=== PATIENT | female | born 2000 | race Caucasian/White ===

== ENCOUNTER 2018-02-10 14:09 | Inpatient (IN) | payer OTHER ==
[2018-02-10 15:35] LABS: ABS Basophils 0.1 10^3/ul (0-0.2); ABS Eosinophils 0 10^3/ul (0-0.6); ABS Lymphocytes 0.9 10^3/ul (1.0-4.8); ABS Monocytes 0.5 10^3/ul (0-0.8); ABS Neutrophils 5.6 10^3/ul (1.5-7.7); ABS Nucleated RBC 0 10^3/ul; Eosinophil % 0.2 % (0-6); Hematocrit 38 % (35-47); Hemoglobin 13.3 g/dl (12.0-16.0); Lymphocyte % 13.3 % (25-47); Mean Corpuscular HGB Conc 35 g/dl (31-36); Mean Corpuscular Hemoglobin 30 pg (27-31); Mean Corpuscular Volume 86 fL (80-97); Mean Platelet Volume 8.7 um3 (7.4-10.4); Nucleated Red Blood Cells % 0.1; Platelet Count 198 10^3/ul (150-450); Red Blood Count 4.46 10^6/ul (4.0-5.4); Red Cell Distribution Width 13 % (10.5-15); White Blood Count 7.1 10^3/ul (3.5-10.8)
[2018-02-10 16:12] LABS: EGFR Non-African American 116.2 (>60)
[2018-02-10 21:24] LABS: Urine Appearance Clear; Urine Blood 2+ (Negative); Urine Color Yellow; Urine Ketones Negative (Negative); Urine Protein Negative (Negative); Urine Specific Gravity 1.006 (1.010-1.030); Urine Urobilinogen Negative (Negative)
--- NOTE | 2018-02-10 23:54 | ED ---
Vito Wood Jennifer, scribed for Anam Estrella MD on 02/10/18 at 1514 . Psychiatric Complaint - HPI Summary HPI Summary: The patient is a 18 year old female who comes to the ED from [facility] for depression, anxiety, and SI all year that worsened in the past few days. The patient states that she had a final two days ago that worsened her anxiety, but she skipped it and drank alcohol instead. The patient reports [facility] and expressed SI. She denies suicidal plan and drug use. - History Of Current Complaint Chief Complaint: EDMentalHealth Hx Obtained From: Patient Onset/Duration: Gradual Onset, Still Present, Worse Since - two days ago, Other - Present for at least one year Timing: Constant Severity Initially: Moderate Severity Currently: Moderate Character: Depressed, Anxious Aggravating Factor(s): Recent Stress - Exams Alleviating Factor(s): Nothing Has Suicidal: Reports: Thoughts. Denies: With A Plan Has Homicidal: Denies: Thoughts, With A Plan - Allergies/Home Medications Allergies/Adverse Reactions: Allergies Allergy/AdvReac Type Severity Reaction Status Date / Time No Known Allergies Allergy Verified 02/10/18 17:45 Home Medications: Home Medications FLUoxetine CAP* [PROzac CAP*] 80 mg PO DAILY 02/10/18 [History Confirmed ] PMH/Surg Hx/FS Hx/Imm Hx Endocrine/Hematology History: Denies: Hx Diabetes Cardiovascular History: Denies: Hx Hypertension Psychiatric History: Reports: Hx Eating Disorder - Bulimia, Hx Depression Infectious Disease History: No Infectious Disease History: Denies: Traveled Outside the [place] in Last 30 Days - Family History Known Family History: Negative: Renal Disease - Social History Occupation: Student Alcohol Use: Occasionally Substance Use Type: Reports: None Smoking Status (MU): Never Smoked Tobacco Review of Systems Negative: Fever Positive: Anxious, Depressed, Other - SI All Other Systems Reviewed And Are Negative: Yes Physical Exam - Summary Physical Exam Summary: Appearance: Well-appearing, Well-nourished Skin: Warm Eyes: Normal ENT: Normal Neck: Supple, nontender Respiratory: Clear to auscultation Cardiovascular: Normal S1, S2. No murmurs. Normal distal pulses in tibial and radial bilaterally. Abdomen: Soft, nontender Musculoskeletal: Normal, Strength/ROM Intact Neurological: Normal, A&Ox3 Psychiatric: Appears mildly anxious, positive SI, no HI General: No acute distress Triage Information Reviewed: Yes Vital Signs On Initial Exam: Initial Vitals Temp Pulse Resp BP Pulse Ox 99.1 F 96 18 137/84 99 02/10/18 14:14 02/10/18 14:14 02/10/18 14:14 02/10/18 14:14 02/10/18 14:14 Vital Signs Reviewed: Yes Diagnostics - Vital Signs Vital Signs Temp Pulse Resp BP Pulse Ox 02/10/18 14:14 99.1 F 96 18 137/84 99 - Laboratory Lab Results: Lab Results 02/10/18 02/10/18 02/10/18 Range/Units 15:21 15:21 20:55 WBC 7.1 (3.5-10.8) 10^3/ul RBC 4.46 (4.0-5.4) 10^6/ul Hgb 13.3 (12.0-16.0) g/dl Hct 38 (35-47) % MCV 86 (80-97) fL MCH 30 (27-31) pg MCHC 35 (31-36) g/dl RDW 13 (10.5-15) % Plt Count 198 (150-450) 10^3/ul MPV 8.7 (7.4-10.4) um3 Neut % (Auto) 78.8 (38-83) % Lymph % (Auto) 13.3 L (25-47) % [place] % (Auto) 6.9 (0-7) % Eos % (Auto) 0.2 (0-6) % Baso % (Auto) 0.8 (0-2) % Absolute Neuts (auto) 5.6 (1.5-7.7) 10^3/ul Absolute Lymphs (auto) 0.9 L (1.0-4.8) 10^3/ul Absolute Monos (auto) 0.5 (0-0.8) 10^3/ul Absolute Eos (auto) 0 (0-0.6) 10^3/ul Absolute Basos (auto) 0.1 (0-0.2) 10^3/ul Absolute Nucleated RBC 0 10^3/ul Nucleated RBC % 0.1 Sodium 137 L (139-145) mmol/L Potassium 3.9 (3.5-5.0) mmol/L Chloride 105 (101-111) mmol/L Carbon Dioxide 22 (22-32) mmol/L Anion Gap 10 (2-11) mmol/L BUN 5 L (6-24) mg/dL Creatinine 0.65 (0.51-0.95) mg/dL Est GFR ( Amer) 149.4 (>60) Est GFR (Non-Af Amer) 116.2 (>60) BUN/Creatinine Ratio 7.7 L (8-20) Glucose 96 (70-100) mg/dL Calcium 9.1 (8.6-10.3) mg/dL Total Bilirubin 0.80 (0.2-1.0) mg/dL AST 15 (13-39) U/L ALT 8 (7-52) U/L Alkaline Phosphatase 43 (34-104) U/L Total Protein 6.9 (6.4-8.9) g/dL Albumin 4.3 (3.2-5.2) g/dL Globulin 2.6 (2-4) g/dL Albumin/Globulin Ratio 1.7 (1-3) TSH 1.18 (0.34-5.60) mcIU/mL Urine Color Yellow Urine Appearance Clear Urine pH 7.0 (5-9) Ur Specific [place] 1.006 L (1.010-1.030) Urine Protein Negative (Negative) Urine Ketones Negative (Negative) Urine Blood 2+ A (Negative) Urine Nitrate Negative (Negative) Urine Bilirubin Negative (Negative) Urine Urobilinogen Negative (Negative) Ur Leukocyte Esterase Negative (Negative) Urine WBC (Auto) Trace(0-5/hpf) (Absent) Urine RBC (Auto) Absent (Absent) Ur Squamous Epith Cells Present A (Absent) Urine Bacteria Absent (Absent) Urine Glucose Negative (Negative) Salicylates < 2.50 (<30) mg/dL Urine Opiates Screen (None Detect) Acetaminophen < 15 mcg/mL Ur Barbiturates Screen (None Detect) Ur Phencyclidine Scrn (None Detect) Ur Amphetamines Screen (None Detect) U Benzodiazepines Scrn (None Detect) Urine Cocaine Screen (None Detect) U Cannabinoids Screen (None Detect) Serum Alcohol < 10 (<10) mg/dL 02/10/18 Range/Units 20:55 WBC (3.5-10.8) 10^3/ul RBC (4.0-5.4) 10^6/ul Hgb (12.0-16.0) g/dl Hct (35-47) % MCV (80-97) fL MCH (27-31) pg MCHC (31-36) g/dl RDW (10.5-15) % Plt Count (150-450) 10^3/ul MPV (7.4-10.4) um3 Neut % (Auto) (38-83) % Lymph % (Auto) (25-47) % [place] % (Auto) (0-7) % Eos % (Auto) (0-6) % Baso % (Auto) (0-2) % Absolute Neuts (auto) (1.5-7.7) 10^3/ul Absolute Lymphs (auto) (1.0-4.8) 10^3/ul Absolute Monos (auto) (0-0.8) 10^3/ul Absolute Eos (auto) (0-0.6) 10^3/ul Absolute Basos (auto) (0-0.2) 10^3/ul Absolute Nucleated RBC 10^3/ul Nucleated RBC % Sodium (139-145) mmol/L Potassium (3.5-5.0) mmol/L Chloride (101-111) mmol/L Carbon Dioxide (22-32) mmol/L Anion Gap (2-11) mmol/L BUN (6-24) mg/dL Creatinine (0.51-0.95) mg/dL Est GFR ( Amer) (>60) Est GFR (Non-Af Amer) (>60) BUN/Creatinine Ratio (8-20) Glucose (70-100) mg/dL Calcium (8.6-10.3) mg/dL Total Bilirubin (0.2-1.0) mg/dL AST (13-39) U/L ALT (7-52) U/L Alkaline Phosphatase (34-104) U/L Total Protein (6.4-8.9) g/dL Albumin (3.2-5.2) g/dL Globulin (2-4) g/dL Albumin/Globulin Ratio (1-3) TSH (0.34-5.60) mcIU/mL Urine Color Urine Appearance Urine pH (5-9) Ur Specific [place] (1.010-1.030) Urine Protein (Negative) Urine Ketones (Negative) Urine Blood (Negative) Urine Nitrate (Negative) Urine Bilirubin (Negative) Urine Urobilinogen (Negative) Ur Leukocyte Esterase (Negative) Urine WBC (Auto) (Absent) Urine RBC (Auto) (Absent) Ur Squamous Epith Cells (Absent) Urine Bacteria (Absent) Urine Glucose (Negative) Salicylates (<30) mg/dL Urine Opiates Screen None detected (None Detect) Acetaminophen mcg/mL Ur Barbiturates Screen None detected (None Detect) Ur Phencyclidine Scrn None detected (None Detect) Ur Amphetamines Screen None detected (None Detect) U Benzodiazepines Scrn None detected (None Detect) Urine Cocaine Screen None detected (None Detect) U Cannabinoids Screen None detected (None Detect) Serum Alcohol (<10) mg/dL Result Diagrams: 02/10/18 15:21 02/10/18 15:21 Lab Statement: Any lab studies that have been ordered have been reviewed, and results considered in the medical decision making process. - EKG 1738 Cardiac Rate: NL EKG Rhythm: Sinus Rhythm - 77 BPM EKG Interpretation: Atrial premature complexes , No acute ischemic ST changes Course/Dx - Course Assessment/Plan: Mental health evaluation appreciated, patient has clear suicidal ideations and thoughts, admitted to behavioral health unit for further treatment - Differential Dx/Clinical Impression Provider Diagnosis: Suicidal ideation Discharge - Sign-Out/Discharge Documenting (check all that apply): Discharge/Admit/Transfer - Discharge Plan Condition: Stable [place] [place] No Primary Care Phys,NOPCP [Medical Doctor] - - Billing Disposition and Condition Condition: STABLE [place] [place] The documentation as recorded by the Vito burns Jennifer accurately reflects the service I personally performed and the decisions made by me, Anam Estrella MD.
[2018-02-11] MEDS ORDERED: Al Hydrox/Mg Hydrox/Simet LIQ* 30 ML UDC PO PRN (05:36)
[2018-02-11] MEDS ORDERED: Acetaminophen TAB* 325 MG PO PRN (05:36)
[2018-02-11] MEDS: Vitamin THERAPEUTIC TAB PO SCH (11:08)
[2018-02-11] MEDS ORDERED: FLUoxetine CAP* 20 MG PO SCH (13:00)
[2018-02-11] MEDS ORDERED: LORazepam TAB(*) 0.5 MG PO ONE (14:00)
--- NOTE | 2018-02-12 02:46 | HP ---
HISTORY AND PHYSICAL: DATE OF ADMISSION: 02/10/18 SUPERVISING PSYCHIATRIST: Jerman Patterson MD * (DICTATED BY CUBA ZULUAGA NP) PRIMARY CARE PROVIDER: [facility]. JUSTIFICATION FOR ADMISSION: The patient presented to the emergency department via 9.45. She had been at her appointment at [facility] and reported suicidal ideation and an increase in eating disorder behaviors. The patient merits hospitalization for immediate safety and stabilization. CHIEF COMPLAINT: "I get overwhelmed." HISTORY OF PRESENT ILLNESS: Riddhi is a 18-year-old white female who is a sophomore at [employer] and lives in a double dormer. She is originally from [place] and is nearing her second year at [employer]. She endorses significant depression since 10th grade. She endorses depressed mood, mild anxious distress, anhedonia, hopelessness, helplessness. She endorses suicidal ideation and passive wish. The patient does not exhibit forward thinking. She is in the midst of a finals and has avoided going to them. She has been attending therapy at [facility] and sees a psychiatrist, Dr. Sharif. The patient was started fluoxetine around approximately 2 months ago. This has been titrated up to 80 mg and the patient has denied any sort of effect. She reports suicidal ideation. She denies previous attempts of suicide. She reports history of cutting since 10th grade and does this when she is feeling overwhelmed and having intense emotional tension. She states her last incident of cutting was last week and points to her hip and thigh area. The patient reports stressors of academics and even little expectations such as needing to send an e-mail. She denies panic attacks. She denies emili or hypomania. She denies psychotic symptoms. The patient reports since June 2017, she has been restricting and binging and purging. She reports that purging also releases emotional tension for her. She states that she purges up to 5 to 6 times a year. She reports she was "a little obsessive" about calorie counting when she was in 9th grade. At that time she was 140 pounds and states that this was motivated by health and somewhat body image. Collateral information from her therapist, Maya Decker, indicated that she has had increased impulsive behavior including cutting and alcohol consumption. The patient identifies that she drinks 2 to 4 times per month and endorses binge drinking during those times. She denies marijuana, cigarettes, or other substance abuse history. PAST PSYCHIATRIC HISTORY: The patient denies prior inpatient hospitalizations. She sees Maya Decker and Dr. Roxanne Sharif at [facility]. She has also been seeing a air support operations operator at the recommendation of [facility] providers. The patient denies previous psychotropic medication trials. She denies a history of trauma or abuse. PAST MEDICAL HISTORY: Childhood asthma, febrile seizures as a child. She denies history. She denies surgical history. She denies history of head injury. She reports a history of low vitamin D for which she takes supplements. CURRENT MEDICATIONS: 1. As stated below, Nexplanon was implanted in September 2016. 2. Fluoxetine 80 mg. ALLERGIES: No known drug allergies. Height 5 feet 4, weight 117 pounds. The patient reports this was her weight 1 week ago last when she met with the air support operations operator. LMP approximately 1- 1/2 weeks ago. She states this has been irregular since September 2016 and she has a Nexplanon implant in. She denies recent sexual activity or need for STI testing. FAMILY PSYCHIATRIC HISTORY: The patient has a maternal aunt with a history of bipolar disorder, mother with depression, and a great aunt completed suicide when the patient's mother was young. SOCIAL HISTORY: The patient was born in [place]. Family moved to [place], [place] when she was approximately 1-year-old. She attended a private high school in [place] due to family wishes. She states she was active in high school in extracurricular activities including quiz bowl and robotics. 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 She identifies as heterosexual and is not currently dating. Denies legal or history. Substance use history as stated above. REVIEW OF SYSTEMS: Constitutional: Negative. No fever, chills, or fatigue. ENT: Negative. Cardiovascular: The patient reports chest pain mid sternal. This did not respond to lorazepam, did respond to Maalox. Respiratory: Negative. Denies shortness of breath or cough. Genitourinary: Negative. Musculoskeletal: Negative. Neurological: Negative. PHYSICAL EXAMINATION GENERAL: The patient is thin framed, otherwise in no apparent distress. VITAL SIGNS: T 98.7, P 92, respirations 16, O2 saturation 100%, BP 105/69. HEENT: Head and Face: Normal head and face inspection. Eyes: Positive EOMI. PERRL. Conjunctivae clear. NECK: Supple. Full ROM. Trachea midline. RESPIRATORY: Lung sounds clear to auscultation. Breath sounds present. CARDIOVASCULAR: Heart RRR. Pulses are symmetrical in both upper and lower extremities. MUSCULOSKELETAL: Normal strength. ROM intact. NEUROLOGICAL: Normal sensory and motor intact. She is alert and oriented x3 with normal gait. Cerebellar function intact. SKIN: Warm and dry. Color reflects adequate perfusion. LABORATORY DATA: CBC was grossly unremarkable. CMP: Sodium 137, BUN 5, BUN to creatinine ratio 7.7. Vitamin D total 43.3 normal and TSH 1.18. Urinalysis : 2+ blood, squamous epithelial cells present. Toxicology negative for salicylates, acetaminophen and alcohol. Urine drug screen was negative. MENTAL STATUS EXAM: The patient is a thin-framed white female, who appears stated age. She is dressed in hospital scrubs. Hair is down, long and curly. She is wearing dark rimmed glasses. She sits on bed facing the physician underwriter with a cooperative attitude. She answers questions fully. She appears to be a good historian. She is alert and oriented x3. Concentration is good. Her memory is 3/3. Her mood is dysphoric. Her affect has full range. She is jovial when discussing some anecdotes. She is tearful and congruent discussing stressors. Thought process is somewhat tangential, otherwise linear. Content of thought is positive for passive wish, suicidal ideation, and preoccupation with eating disorder behaviors. She denies AV hallucinations, delusions, depersonalization, HI, or . Her insight is fair. Her judgment is poor. Fund of knowledge is excellent. DIAGNOSES: Major depressive disorder with anxious distress; unspecified eating disorder. ASSESSMENT: Riddhi is a 18-year-old white female, who presented to the emergency department after a therapy appointment at [facility] due to suicidal ideation and significant eating disorder. She has experienced epigastric pain and chest pain related to eating disorder. She reports hoping to from these symptoms and therefore, does not seek medical treatment sooner. The patient denies previous psychiatric hospitalizations. She presented severely depressed and high lethality risk. She states understanding for need of intensive psychiatric services including eating disorder protocol. PLAN: The patient is admitted to adult behavioral services unit on 9.39 status. Her code status is full. Placed on 15-minute checks for safety. This can be decreased to 30-minute observation if she is safe on all checks and staff does not denote any further concerns. We will continue with eating disorder protocol. The patient must remain in milieu for 1 hour after meals. She is encouraged to participate in supportive milieu, individual sessions with staff and psychoeducational groups. We will obtain an MMPI for diagnostic clarification. Medications: We will continue outpatient regimen at this time. Estimated length of stay is 1 week. Discharge planning will include family involvement and outpatient providers. CUBA ZULUAGA NP [id number]/CPS #: [id number] [place]
[2018-02-12] MEDS: Vitamin THERAPEUTIC TAB PO SCH (09:22)
[2018-02-12] MEDS: FLUoxetine CAP* 20 MG PO SCH (09:23)
[2018-02-12] MEDS: LORazepam TAB(*) 0.5 MG PO SCH ×2 (11:35→16:43)
[2018-02-13] MEDS: LORazepam TAB(*) 0.5 MG PO SCH ×3 (07:43→16:00)
[2018-02-13] MEDS: FLUoxetine CAP* 20 MG PO SCH (09:03)
[2018-02-13] MEDS: Vitamin THERAPEUTIC TAB PO SCH (09:03)
--- NOTE | 2018-02-13 18:11 | PN ---
Subjective - Subjective Date of Service: 02/13/18 Service Type: 98398 Hosp care 15 min low complexity Subjective: Patient was in bed in the afternoon saying that she was tired. Continues to feel depressed, tired, unmotivated and suicidal withot a plan. Denies hallucinations or delusions. Objective - Appearance Appearance: Thin Framed Dysmorphic Features: No Hygiene: Normal Grooming: Fairly Well Kept - Behavior Psychomotor Activities: Abnormal-Decreased Exhibits Abnormal Movement: No - Attitude and Relatedness Attitude and Relatedness: Appropriate Eye Contact: Fair - Speech Quality: Unpressured Latencies: Normal Quantity: Appropriate - Mood Patient's Decription of Mood: "Sad" - Affect Observed Affect: Depressed - Thought Process Patient's Thought Process: Coherent Thought Content: Yes Passive Wish, No Suicidal Planning, No Homicidal Ideation, No Paranoid Ideation - Sensorium Experiencing Hallucinations: No, Sensorium is Clear Type of Hallucinations: Visual: No, Auditory: No, Command: No - Level of Consciousness Level of Consciousness: Alert Orientation: Yes Intact, Yes Orientated to Time, Yes Orientated to Place, Yes Orientated to Person - Impulse Control Impulse Control: Intact - Insight and Judgement Insight and Judgement: Fair - Group Participation Particating in Group Activities: Yes - Medication Management Medication Management Adherence: Yes Assessment - Assessment Merits Inpatient Hospitalization: For Immediate Safety, For Stabilization, Pending Safe DC Plan Plan - Plan Treatment Plan: Name: NICHOLAS BARRIENTOS Birthdate: 2000 [id number] Continued Medication Management: Continue Outpt Medication Medications: Current Medications Acetaminophen (Tylenol Tab*) 650 mg PO Q4H PRN PRN Reason: PAIN or TEMP > 101 F Al Hydrox/Mg Hydrox/Simethicone (Maalox Plus*) 30 ml PO Q4H PRN PRN Reason: INDIGESTION Last Admin: 02/11/18 15:23 Dose: 30 ml Fluoxetine HCl (Prozac Cap*) 80 mg PO DAILY [facility] Last Admin: 02/13/18 09:03 Dose: 80 mg Lorazepam (Ativan Tab(*)) 0.5 mg PO AC [facility] Last Admin: 02/13/18 16:00 Dose: 0.5 mg Multivitamins (Theragran Tab*) 1 tab PO DAILY [facility] Last Admin: 02/13/18 09:03 Dose: 1 tab - Discharge Plan Discharge Plan: Outpatient Follow Up Outpatient Program: Counseling/Psych Services at [place]
[2018-02-14] MEDS: FLUoxetine CAP* 20 MG PO SCH (09:06)
[2018-02-14] MEDS: LORazepam TAB(*) 0.5 MG PO SCH ×3 (09:06→16:56)
[2018-02-14] MEDS: Vitamin THERAPEUTIC TAB PO SCH (09:06)
--- NOTE | 2018-02-14 16:59 | PN ---
Subjective - Subjective Service Type: [id number] Hosp care 35 min high complexity Subjective: Patient and parents present for family meeting with hand sign writer and Mayelin You LMSW. Patient tearful at times, appropriate to topic. With prompting, patient expressed ambivalence about being alive. She states that she continues to have urge to binge/purge and to self-harm. She recognizes that increased supervision is preventing her from doing so and is somewhat relieved and somewhat anxious because of this. Patient is not yet able to articulate fully underlying reason for self-harm urges. She reports some benefit from lorazepam before meals. Discussed safety planning with parents in preparation for patient to return home for the summer. Father states he removed razors, medications from her dorm and agrees to dispose of them. Discussed treatment recommendations and warning signs for patient and her parents to be aware of. Objective - Appearance Appearance: Thin Framed Dysmorphic Features: Yes Hygiene: Normal Grooming: Well Kept - Behavior Psychomotor Activities: Normal Exhibits Abnormal Movement: No - Attitude and Relatedness Attitude and Relatedness: Superficially Cooperative Eye Contact: Good - Speech Quality: Unpressured Latencies: Normal Quantity: Terse - Mood Patient's Decription of Mood: "Anxious" - Affect Observed Affect: Depressed Affect Consistent with: Dysphoria - Thought Process Patient's Thought Process: Circumstantial, Impoverished Thought Content: Yes Passive Wish, No Suicidal Planning, No Homicidal Ideation, No Paranoid Ideation - Sensorium Experiencing Hallucinations: No, Sensorium is Clear Type of Hallucinations: Visual: No, Auditory: No, Command: No - Level of Consciousness Level of Consciousness: Alert Orientation: Yes Intact, Yes Orientated to Time, Yes Orientated to Place, Yes Orientated to Person - Impulse Control Impulse Control: Tenuous - Insight and Judgement Insight and Judgement: Poor - Group Participation Particating in Group Activities: Yes - Medication Management Medication Management Adherence: Yes Assessment - Assessment Merits Inpatient Hospitalization: For Immediate Safety, For Stabilization, Consolidate Improvements, Pending Safe DC Plan Inpatient DSM-V Dx: F33.1 Clinical Impression: 18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 Patient continues to have passive wish and self-harm urges. She merits hospitalization for immediate safety and stabilization. Plan - Plan Treatment Plan: Name: NICHOLAS BARRIENTOS Birthdate: 2000 [id number] continue acute intensive psychiatric treatment. continue current medications. discharge planning to involve family and outpatient providers. Continued Medication Management: Continue Outpt Medication Medications: Current Medications Acetaminophen (Tylenol Tab*) 650 mg PO Q4H PRN PRN Reason: PAIN or TEMP > 101 F Al Hydrox/Mg Hydrox/Simethicone (Maalox Plus*) 30 ml PO Q4H PRN PRN Reason: INDIGESTION Last Admin: 02/11/18 15:23 Dose: 30 ml Fluoxetine HCl (Prozac Cap*) 80 mg PO DAILY [facility] Last Admin: 02/14/18 09:06 Dose: 80 mg Lorazepam (Ativan Tab(*)) 0.5 mg PO AC [facility] Last Admin: 02/14/18 12:00 Dose: 0.5 mg Multivitamins (Theragran Tab*) 1 tab PO DAILY [facility] Last Admin: 02/14/18 09:06 Dose: 1 tab - Discharge Plan Discharge Plan: Outpatient Follow Up Outpatient Program: Counseling/Psych Services at [place]
[2018-02-15] MEDS: LORazepam TAB(*) 0.5 MG PO SCH ×2 (07:48→11:36)
[2018-02-15] MEDS: FLUoxetine CAP* 20 MG PO SCH (08:17)
[2018-02-15] MEDS: Vitamin THERAPEUTIC TAB PO SCH (08:17)
[2018-02-15] MEDS ORDERED: LORazepam TAB(*) 0.5 MG PO SCH (15:34)
--- NOTE | 2018-02-15 15:35 | PN ---
Subjective - Subjective Date of Service: 02/15/18 Service Type: 16803 Hosp care 25 min moderate complexity Subjective: Patient dysphoric and reports urges to purge. She states that GUSTAVO protocol is helpful to refrain from purging but has done so after evening snack. She inquires about tapering lorazepam and is agreeable to prn use to assess need and empower her ability to identify anxiety in regards to food. Patient reports passive wish and ambivalence about mental health improving. Objective - Appearance Appearance: Thin Framed Dysmorphic Features: Yes Hygiene: Normal Grooming: Well Kept - Behavior Psychomotor Activities: Normal Exhibits Abnormal Movement: No - Attitude and Relatedness Attitude and Relatedness: Cooperative Eye Contact: Fair - Speech Quality: Unpressured Latencies: Normal Quantity: Terse - Mood Patient's Decription of Mood: "Fine" - Affect Observed Affect: Depressed Affect Consistent with: Dysphoria - Thought Process Patient's Thought Process: Impoverished Thought Content: Yes Passive Wish, No Suicidal Planning, No Paranoid Ideation - Sensorium Experiencing Hallucinations: No, Sensorium is Clear Type of Hallucinations: Visual: No, Auditory: No, Command: No - Level of Consciousness Level of Consciousness: Alert Orientation: Yes Intact, Yes Orientated to Time, Yes Orientated to Place, Yes Orientated to Person - Impulse Control Impulse Control: Poor - Insight and Judgement Insight and Judgement: Poor - Group Participation Particating in Group Activities: Yes - Medication Management Medication Management Adherence: Yes Assessment - Assessment Merits Inpatient Hospitalization: For Immediate Safety, For Stabilization, Consolidate Improvements, Pending Safe DC Plan Inpatient DSM-V Dx: F33.1 Clinical Impression: 18yo white female, sophomore at [employer] (formerly [employer]) who presented to ED after appt with therapist due to suicidal ideation and active eating disorder. Patient continues to have passive wish and self-harm urges. She merits hospitalization for immediate safety and stabilization. Plan - Plan Treatment Plan: Name: NICHOLAS BARRIENTOS Birthdate: 2000 [id number] continue acute intensive psychiatric treatment. decrease lorazepam to prn. discharge planning to involve family and outpatient providers. Continued Medication Management: Continue Outpt Medication Medications: Current Medications Acetaminophen (Tylenol Tab*) 650 mg PO Q4H PRN PRN Reason: PAIN or TEMP > 101 F Al Hydrox/Mg Hydrox/Simethicone (Maalox Plus*) 30 ml PO Q4H PRN PRN Reason: INDIGESTION Last Admin: 02/11/18 15:23 Dose: 30 ml Fluoxetine HCl (Prozac Cap*) 80 mg PO DAILY [facility] Last Admin: 02/15/18 08:17 Dose: 80 mg Lorazepam (Ativan Tab(*)) 0.5 mg PO Q6H PRN PRN Reason: ANXIETY Lorazepam (Ativan Tab(*)) 0.5 mg PO AC [facility] Stop: 02/15/18 18:00 Multivitamins (Theragran Tab*) 1 tab PO DAILY [facility] Last Admin: 02/15/18 08:17 Dose: 1 tab - Discharge Plan Discharge Plan: Outpatient Follow Up Outpatient Program: Private Clinician(s)
[2018-02-16] MEDS ORDERED: LORazepam TAB(*) 0.5 MG PO PRN (01:00)
[2018-02-16] MEDS: FLUoxetine CAP* 20 MG PO SCH (09:00)
[2018-02-16] MEDS: Vitamin THERAPEUTIC TAB PO SCH (09:00)
--- NOTE | 2018-02-16 15:14 | PN ---
Subjective - Subjective Date of Service: 02/16/18 Service Type: 54984 Hosp care 25 min moderate complexity Subjective: Riddhi is having passive suicidal thoughts. She and her therapist have determined that she can categorize into passive thoughts and active suicidal thoughts, which involve her feeling agitated and motivated for action. This distinction is important to her. She cannot imagine life without these thoughts. She states it's been this way for a year and it has never changed, why would it change in the future. Objective - Appearance Appearance: Thin Framed Dysmorphic Features: No Hygiene: Normal Grooming: Well Kept - Behavior Psychomotor Activities: Normal Exhibits Abnormal Movement: No - Attitude and Relatedness Attitude and Relatedness: Cooperative Eye Contact: Good - Speech Quality: Unpressured Latencies: Normal Quantity: Appropriate - Mood Patient's Decription of Mood: "Fine" - Affect Observed Affect: Constricted Affect Consistent with: Dysphoria - Thought Process Patient's Thought Process: Goal Directed Thought Content: Yes Passive Wish, Yes Suicidal Planning, No Homicidal Ideation, No Paranoid Ideation - Sensorium Experiencing Hallucinations: No, Sensorium is Clear Type of Hallucinations: Visual: No, Auditory: No, Command: No - Level of Consciousness Level of Consciousness: Alert Orientation: Yes Intact, Yes Orientated to Time, Yes Orientated to Place, Yes Orientated to Person - Impulse Control Impulse Control: Impaired - Insight and Judgement Insight and Judgement: Impaired - Group Participation Particating in Group Activities: Yes - Medication Management Medication Management Adherence: Yes - Additional Observations Comments: As Riddhi purged yesterday after group, we will amend the nursing directive to include a prohibition from going into the bathroom for an hour after meals AND snack. Assessment - Assessment Merits Inpatient Hospitalization: For Immediate Safety Inpatient DSM-V Dx: F33.1 Clinical Impression: Riddhi is a 18-year-old woman with a history of depression and eating disorder. She is cooperative on the unit and cannot see that her life will ever be any different than it is now in that she feels like she will always have suicidal thoughts. Plan - Plan Treatment Plan: Name: RIDDHI BARRIENTOS Birthdate: 2000 [id number] Continued Medication Management: Consider Medication Medications: Current Medications Acetaminophen (Tylenol Tab*) 650 mg PO Q4H PRN PRN Reason: PAIN or TEMP > 101 F Al Hydrox/Mg Hydrox/Simethicone (Maalox Plus*) 30 ml PO Q4H PRN PRN Reason: INDIGESTION Last Admin: 02/11/18 15:23 Dose: 30 ml Fluoxetine HCl (Prozac Cap*) 80 mg PO DAILY [facility] BEDS AT [facility] Last Admin: 02/16/18 09:00 Dose: 80 mg Lorazepam (Ativan Tab(*)) 0.5 mg PO Q6H PRN PRN Reason: ANXIETY Multivitamins (Theragran Tab*) 1 tab PO DAILY [facility] 234 BEDS AT [facility] Last Admin: 02/16/18 09:00 Dose: 1 tab - Discharge Plan Additional Comments: Riddhi will be followed in the outpatient setting and will continue to work with providers with whom she has excellent relationships.
[2018-02-17] MEDS: FLUoxetine CAP* 20 MG PO SCH (08:23)
[2018-02-17] MEDS: Vitamin THERAPEUTIC TAB PO SCH (08:23)
--- NOTE | 2018-02-17 13:15 | PN ---
[facility]: Group Therapy Note - Service Type Service Type: 74574 Group Psychotherapy - Cognitive Behavioral Group Therapy ( CBT):Patient was attentive and participatory in CBT programming this morning, and remained in good behavioral control. Patient expressed positive insights regarding relevant treatment interventions and goals.
--- NOTE | 2018-02-17 15:50 | PN ---
Subjective - Subjective Date of Service: 02/17/18 Service Type: 03411 Hosp care 25 min moderate complexity Subjective: Riddhi appears euthymic in the meeting we have together, but she endorses suicidal thoughts, albeit passive ones today. We discuss the utility of lithium in her future treatment. Objective - Appearance Appearance: Well Developed/Nourished Dysmorphic Features: No Hygiene: Normal Grooming: Well Kept - Behavior Psychomotor Activities: Normal Exhibits Abnormal Movement: No - Attitude and Relatedness Attitude and Relatedness: Cooperative Eye Contact: Good - Speech Quality: Unpressured Latencies: Normal Quantity: Appropriate - Mood Patient's Decription of Mood: "Okay" - Affect Observed Affect: Unvariable Affect Consistent with: Dysphoria - Thought Process Patient's Thought Process: Coherent, Goal Directed Thought Content: Yes Suicidal Planning, No Passive Wish, No Homicidal Ideation, No Paranoid Ideation - Sensorium Experiencing Hallucinations: No, Sensorium is Clear Type of Hallucinations: Visual: No, Auditory: No, Command: No - Level of Consciousness Level of Consciousness: Alert Orientation: Yes Intact, Yes Orientated to Time, Yes Orientated to Place, Yes Orientated to Person - Impulse Control Impulse Control: Intact - Insight and Judgement Insight and Judgement: Fair - Group Participation Particating in Group Activities: Yes - Medication Management Medication Management Adherence: Yes - Additional Observations Comments: Riddhi has been compliant with eating disorder protocols. She is eager to leave the unit but also recognizes that she has some impaired judgment regarding suicidal thoughts and planning. Assessment - Assessment Merits Inpatient Hospitalization: For Immediate Safety Inpatient DSM-V Dx: F33.1 Clinical Impression: Riddhi is a 18-year-old woman with a history of depression and eating disorder. She is cooperative on the unit and cannot see that her life will ever be any different than it is now in that she feels like she will always have suicidal thoughts. This cooperative behavior while at the same time purging after snack time and having bubbling up active suicidal thoughts leaves her at high risk for discharge. Plan - Plan Treatment Plan: Name: RIDDHI BARRIENTOS Birthdate: 2000 [id number] Continued Medication Management: Different Medication Medications: Current Medications Acetaminophen (Tylenol Tab*) 650 mg PO Q4H PRN PRN Reason: PAIN or TEMP > 101 F Al Hydrox/Mg Hydrox/Simethicone (Maalox Plus*) 30 ml PO Q4H PRN PRN Reason: INDIGESTION Last Admin: 02/11/18 15:23 Dose: 30 ml Fluoxetine HCl (Prozac Cap*) 80 mg PO DAILY [facility] Last Admin: 02/17/18 08:23 Dose: 80 mg [place] Carbonate ([place] Carbonate Er Tab*) 450 mg PO DAILY@1700 [facility] Lorazepam (Ativan Tab(*)) 0.5 mg PO Q6H PRN PRN Reason: ANXIETY Last Admin: 02/16/18 22:07 Dose: 0.5 mg Multivitamins (Theragran Tab*) 1 tab PO DAILY [facility] Last Admin: 02/17/18 08:23 Dose: 1 tab - Discharge Plan Discharge Plan: Outpatient Follow Up Additional Comments: Riddhi will be followed in the outpatient setting and will continue to work with providers with whom she has excellent relationships. We are adding lithium ER 450 mg in an attempt to reduce suicidal thoughts and potentially lift Riddhi out of her chronic depression.
[2018-02-17] MEDS ORDERED: Lithium Carbonate ER* 450 MG TAB.ER PO SCH ×2 (17:00→21:00)
--- NOTE | 2018-02-18 03:31 | CONS ---
PSYCHOLOGICAL REPORT: DATE OF CONSULT: 02/17/18 REASON FOR REFERRAL: Riddhi was referred for personality testing due to diagnostic concerns as she presents with a history of cutting apparently since the 10th grade as well as more current symptoms associated with an eating disorder. TEST ADMINISTERED: Riddhi completed the [place] Multiphasic Personality Inventory-2 (MMPI-2). She was given feedback regarding test results in individual conversation. 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 Riddhi currently describes having difficulties with depression since the 10th grade and describes a history of engaging in cutting behaviors. She recently was taken to the [facility] after disclosing suicidal thoughts to her counselor at [facility]. Riddhi continues to endorse passive suicidal ideation, but denies any intent or planning. She expresses rather pessimistic view when prompted to discuss such thoughts, citing how she does not expect these thoughts to diminish. Riddhi describes good academic adjustment at [employer] despite her current difficulties, which have precluded her from completing 2 of her courses this semester. She anticipates getting incompletes in these courses and hopefully finishing the work in a timely fashion after discharge. She anticipates going home for the summer months with her family in [place], [place]. She does not identify any summer plans other than just staying with her parents. She describes good family adjustment there, but struggles to spontaneously offer any future narrative with any complexity. BEHAVIORAL OBSERVATIONS: Riddhi has been compliant with unit activities and routine; compliant with recommended medications, which have included antidepressant and mood stabilizers. She has attended programming in a satisfactory fashion spontaneously participating at times, but appears to be attentive to topics of discussion. She currently presents with a fair affect that is appropriately variable with discussion. She describes some improvement , mostly again secondary to being afforded the ability to not have to make decisions. She has not pressed for discharge, describing continuing thoughts of suicide, but is interested when discussing her summer plans. TEST RESULTS: Riddhi has a pointed elevation on the Fb scale, which is reflective of cynical and pessimistic thoughts and feelings about people and circumstances (T = 95). She consequently elevates both the depression and anxiety indices as well as the schizophrenia index. The depression scale attains a T score of 80 while the latter scores are at T score of 77. She also has a minor elevation on the psychopathic deviate scale (T = 67). Taken together, feedback emphasized the cynical and pessimistic belief systems and tried to challenge those with differentiating between treatment of affect and treatment of belief. Riddhi endorses doing things to make herself feel better such as regular exercise, but again falters towards the cynical expectations citing how exercise does not really help her feel better. Discussion also addressed her elevated schizophrenia scale in the context of not feeling good that about her relationships with people. There were no concerns regarding psychotic process nor is there any apparent indication of bipolar process in the testing context. IMPRESSIONS AND RECOMMENDATIONS: Clinical discussion with Riddhi will address possible borderline personality features secondary to historical cutting and ongoing difficulties with an eating disorder. Concerns regarding lethality remained to some degree, although have diminished with her hospitalization. Concerns are that her experience of having passive suicidal thoughts has become an enduring trait that is more of an emotional defense than an intention. Clinical feedback addressed the concept of emotional defense and how flight into daydreaming of and/or suicide may be part of her avoiding anxieties or stressors. Although Riddhi impresses as having some insight into this, she impresses as remaining somewhat defended. Overall, the interaction regarding testing feedback impressed as help seeking, help rejecting in some regards as Riddhi does not spontaneously ask for discharge , nor does she offer spontaneous comments in the context of her future narrative. Diagnostic impression supports a major depressive disorder, moderate, without psychosis as well as an eating disorder. Ongoing treatment should continue to assess for borderline personality function. [id number]/[facility] #: [id number] [place]
[2018-02-18] MEDS: FLUoxetine CAP* 20 MG PO SCH (08:23)
[2018-02-18] MEDS: Vitamin THERAPEUTIC TAB PO SCH (08:24)
--- NOTE | 2018-02-18 12:54 | PN ---
Subjective - Subjective Date of Service: 02/18/18 Service Type: 31317 Hosp care 15 min low complexity Subjective: Patient reading on her bed upon approach. She presents as dysphoric with restricted affect. She is gaining insight into drive for purging and SIB ( cutting). Patient identifies improvement in SI from active to fleeting passive thoughts. She reports distress in regards to SI. Patient reports decrease in anxiety and has not utilized lorazepam more than once since being a prn. Encouraged to utilize lorazzepam, if needed. She agrees to target GUSTAVO behaviors and attend treatment near her home this summer. Objective - Appearance Appearance: Thin Framed Dysmorphic Features: Yes Hygiene: Normal Grooming: Well Kept - Behavior Psychomotor Activities: Normal Exhibits Abnormal Movement: No - Attitude and Relatedness Attitude and Relatedness: Cooperative Eye Contact: Fair - Speech Quality: Unpressured Latencies: Normal Quantity: Appropriate - Mood Patient's Decription of Mood: "Anxious" - Affect Observed Affect: Depressed Affect Consistent with: Dysphoria - Thought Process Patient's Thought Process: Circumstantial, Impoverished Thought Content: Yes Passive Wish, Yes Suicidal Planning, No Homicidal Ideation, No Paranoid Ideation - Sensorium Experiencing Hallucinations: No, Sensorium is Clear Type of Hallucinations: Visual: No, Auditory: No, Command: No - Level of Consciousness Level of Consciousness: Alert Orientation: Yes Intact, Yes Orientated to Time, Yes Orientated to Place, Yes Orientated to Person - Impulse Control Impulse Control: Poor - Insight and Judgement Insight and Judgement: Poor - Group Participation Particating in Group Activities: Yes - Medication Management Medication Management Adherence: Yes Assessment - Assessment Inpatient DSM-V Dx: F33.1 Clinical Impression: 18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 Patient continues to have passive wish and self-harm urges. She merits hospitalization for immediate safety and stabilization. Plan - Plan Treatment Plan: Name: NICHOLAS BARRIENTOS Birthdate: 2000 [id number] continue acute intensive psychiatric treatment. continue lithium ER for suicidal ideation. continue GUSTAVO protocol. discharge planning to involve family and outpatient providers. Continued Medication Management: Different Medication Medications: Current Medications Acetaminophen (Tylenol Tab*) 650 mg PO Q4H PRN PRN Reason: PAIN or TEMP > 101 F Al Hydrox/Mg Hydrox/Simethicone (Maalox Plus*) 30 ml PO Q4H PRN PRN Reason: INDIGESTION Last Admin: 02/11/18 15:23 Dose: 30 ml Fluoxetine HCl (Prozac Cap*) 80 mg PO DAILY [facility] Last Admin: 02/18/18 08:23 Dose: 80 mg [place] Carbonate ([place] Carbonate Er Tab*) 450 mg PO DAILY [facility] Lorazepam (Ativan Tab(*)) 0.5 mg PO Q6H PRN PRN Reason: ANXIETY Last Admin: 02/16/18 22:07 Dose: 0.5 mg Multivitamins (Theragran Tab*) 1 tab PO DAILY [facility] Last Admin: 02/18/18 08:24 Dose: 1 tab - Discharge Plan Discharge Plan: Outpatient Follow Up Outpatient Program: Private Clinician(s)
[2018-02-18] MEDS: Lithium Carbonate ER* 450 MG TAB.ER PO SCH (13:52)
[2018-02-19] MEDS: FLUoxetine CAP* 20 MG PO SCH (08:22)
[2018-02-19] MEDS: Lithium Carbonate ER* 450 MG TAB.ER PO SCH (08:22)
[2018-02-19] MEDS: Vitamin THERAPEUTIC TAB PO SCH (08:23)
[2018-02-20] MEDS: Vitamin THERAPEUTIC TAB PO SCH (08:50)
[2018-02-20] MEDS: Lithium Carbonate ER* 450 MG TAB.ER PO SCH (08:51)
[2018-02-20] MEDS: FLUoxetine CAP* 20 MG PO SCH (08:51)
[2018-02-21] MEDS: FLUoxetine CAP* 20 MG PO SCH (09:04)
[2018-02-21] MEDS: Vitamin THERAPEUTIC TAB PO SCH (09:05)
[2018-02-21] MEDS: Lithium Carbonate ER* 450 MG TAB.ER PO SCH (09:05)
--- NOTE | 2018-02-21 16:02 | PN ---
Subjective - Subjective Date of Service: 02/21/18 Service Type: 59872 Hosp care 15 min low complexity Subjective: Riddhi says she is doing much better with regard to her mood anxiety and food intake. She has no choice but t6o eat and retain it as staffs are watching he around meal times. Says she may have gained some weights. Denies SI. Objective - Appearance Appearance: Healthy Appearing, Thin Framed Dysmorphic Features: No Hygiene: Normal Grooming: Well Kept - Behavior Psychomotor Activities: Normal Exhibits Abnormal Movement: No - Attitude and Relatedness Attitude and Relatedness: Appropriate Eye Contact: Good - Speech Quality: Unpressured Latencies: Normal Quantity: Appropriate - Mood Patient's Decription of Mood: "Okay" - Affect Observed Affect: Constricted Affect Consistent with: Dysphoria - Thought Process Patient's Thought Process: Coherent, Goal Directed Thought Content: No Passive Wish, No Suicidal Planning, No Homicidal Ideation, No Paranoid Ideation - Sensorium Experiencing Hallucinations: No, Sensorium is Clear Type of Hallucinations: Visual: No, Auditory: No, Command: No - Level of Consciousness Level of Consciousness: Alert Orientation: Yes Intact, Yes Orientated to Time, Yes Orientated to Place, Yes Orientated to Person - Impulse Control Impulse Control: Tenuous - Insight and Judgement Insight and Judgement: Fair - Group Participation Particating in Group Activities: Yes - Medication Management Medication Management Adherence: Yes Assessment - Assessment Merits Inpatient Hospitalization: For Immediate Safety, For Stabilization, Pending Safe DC Plan Inpatient DSM-V Dx: F33.1 Clinical Impression: Improved but need more time to consolidate. Plan - Plan Treatment Plan: Name: RIDDHI BARRIENTOS Birthdate: 2000 [id number] Somewhat improved but still need time. Continued Medication Management: Continue Outpt Medication Medications: Current Medications Acetaminophen (Tylenol Tab*) 650 mg PO Q4H PRN PRN Reason: PAIN or TEMP > 101 F Al Hydrox/Mg Hydrox/Simethicone (Maalox Plus*) 30 ml PO Q4H PRN PRN Reason: INDIGESTION Last Admin: 02/11/18 15:23 Dose: 30 ml Fluoxetine HCl (Prozac Cap*) 80 mg PO DAILY [facility] Last Admin: 02/21/18 09:04 Dose: 80 mg [place] Carbonate ([place] Carbonate Er Tab*) 450 mg PO DAILY [facility] Last Admin: 02/21/18 09:05 Dose: 450 mg Lorazepam (Ativan Tab(*)) 0.5 mg PO Q6H PRN PRN Reason: ANXIETY Last Admin: 02/16/18 22:07 Dose: 0.5 mg Multivitamins (Theragran Tab*) 1 tab PO DAILY [facility] Last Admin: 02/21/18 09:05 Dose: 1 tab - Discharge Plan Discharge Plan: Outpatient Follow Up Outpatient Program: Counseling/Psych Services at [place]
[2018-02-22 07:39] VITALS: BP 98/61
[2018-02-22] MEDS: FLUoxetine CAP* 20 MG PO SCH (08:46)
[2018-02-22] MEDS: Lithium Carbonate ER* 450 MG TAB.ER PO SCH (08:46)
[2018-02-22] MEDS: Vitamin THERAPEUTIC TAB PO SCH (08:47)
--- NOTE | 2018-02-23 10:04 | DS ---
CC: [facility]; [facility] * DISCHARGE SUMMARY: DATE OF ADMISSION: 02/10/18 DATE OF DISCHARGE: 02/22/18 SUPERVISING PSYCHIATRIST: Dr. Jerman Patterson * (DICTATED BY CUBA ZULUAGA NP) DISCHARGE DIAGNOSES: Major depressive disorder, unspecified eating disorder. CONDITION AT THE TIME OF DISCHARGE: Improved. The patient presented euthymic with full range of affect. She reports much improved mood. She states that she is no longer having suicidal ideation. She has been resistant to urges to bend and purge. The patient states that this is primarily due to being in a controlled environment and she is hopeful and looking forward to continuing treatment for eating disorder and depression. We discussed safety planning in regards to thoughts of self harm or suicidal ideation. This senior writer spoke with her mother, Jenelle, and discussed discharge instructions and safety planning as well. MENTAL STATUS EXAM: Riddhi is a 18-year-old white female, who appears stated age. She is well groomed and is dressed in her own clothing. She is alert and oriented x3. She has good eye contact and her speech is soft and articulate. Her mood is "good." Her affect has full range. Thought content is significant for desire to be discharged from hospital and return home on a bus today. Thought processes are linear and goal directed. Her insight and judgment are good, and much improved. Fund of knowledge is excellent. DISCHARGE INSTRUCTIONS GIVEN TO THE PATIENT: A. Medications: 1. Fluoxetine 80 mg p.o. q.a.m. 2. Salcha ER 450 mg p.o. daily at bedtime. 3. Lorazepam 0.5 mg daily p.r.n., anxiety. The patient was prescribed a 30-day supply and filled at the hospital pharmacy. This senior writer encouraged the patient and mother to have a 1-week supply at her disposal at a time. B. Diet: Regular. C. Activities: Ambulation as tolerated. Tobacco cessation is not applicable. D. Followup Care: The patient will follow up at [facility] in [place], [place]. She will follow up upon return to [place] at [facility] with her therapist, Maya Agee and Dr. Roxanne Cage. She is also instructed to follow up with [facility] in addition when she returns to [place]. E. Substance abuse followup is not applicable. HOSPITAL COURSE: A. Reason for admission: The patient presented to the emergency department after an appointment at [facility]. She reported suicidal ideation and an increase in eating disorder behaviors. The patient was admitted to the adult [facility] on status. 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 She is originally from [place], [place] and is nearing the end of her second year at [employer]. She endorses significant depression since 10th grade. She endorses depressed mood, mild anxious distress, anhedonia, hopelessness, helplessness. She endorses suicidal ideation and passive wish. The patient does not exhibit forward thinking and, in fact, is ambivalent about being alive. She is in the midst of final exams and has avoided attending classes. She has been attending therapy at [facility] and sees psychiatrist, Dr. Sharif. The patient was started on fluoxetine approximately two months ago. This was titrated to 80mg and the patient denies efficacy. She continues to endorse intrusive suicidal thoughts; denies previous attempts of suicide. She reports history of cutting since 10th grade and does this when she is feeling overwhelmed and having "intense emotional tension." She states her last incident of cutting was last week and points to her hip and thigh area. The patient reports stressors of academics and even little expectations, such as needing to send an email. She denies panic attacks but endorses midsternal pain. She denies ameya or hypomania. She denies psychotic symptoms. The patient reports since June 2017, she has been restricting and binging/purging. She reports purging also releases emotional tension for her. She states she purges up to 5- 6 times a day. She reports she was "a little obsessive" about calorie counting when she was in 9th grade. At that time, she was 140 pounds and states this was motivated by health and somewhat body image. Collateral information from her therapist, Maya Decker, indicated taht she has had increased impulsive behavior including cutting and alcohol consumption. The patient identifies that she drinks 2-4 times per month and endorses binge drinking during those times. She denies marijuana, cigarettes of other substance abuse history. B. Psychiatric treatment rendered: Laboratory data: CBC grossly unremarkable. CMP: Sodium 137, BUN 5, Bun/ creatinine ratio 7.7, vit D normal and TSH 1.18. Urinalysis: 2+blood, squamous epithelial cells present. Toxicology negative and urine drug screen negative. The patient was placed on 15-minute checks for safety and was soon decreased to 30 minute observation and allowed staff pass. We initiated eating disorder protocol which included monitoring for 1 hour after meals. She participated in supportive milieu, individual sessions with staff, and psychoeducational groups. We obtained an MMPI for diagnostic clarification which endorsed depression, anxiety, and the full report by psychologist Dr. Bryan Chen. The patient has been started on fluoxetine and titrated to 80 mg prior to arrival, so we continued this medication. She and her family met with senior writer and social service assistant to discuss treatment planning. It was noted that the patient is the eldest of 3 children and that her role with her mother is sometimes reversed. It was also noted that her mother likely exhibited eating disorder and self- loathing behaviors as well. The patient continued to endorse suicidal ideation and described these thoughts as intrusive. She is agreeable to a trial of a low dose of lithium for suicidal thoughts. She tolerated this well, noted to have some mild bilateral hand tremor but denies this as problematic. She endorsed improvement in thought processes. While on the unit, the patient also endorsed epigastric chest pain. She tolerated a trial of lorazepam before meals after cardiac symptoms were ruled out. The lorazepam was later decreased to as needed for anxiety which the patient utilized very sparingly. On day of admission, the patient reported eagerness to be discharged and Social Work had identified a plan for her to take a bus back to her home in [place], [place]. Both patient and parents were agreeable to this plan. The patient has been safe on all checks. She denied suicidal ideation or passive wish. She exhibited future orientation. She was receptive to suggestions for therapeutic interventions. The patient was encouraged to call this unit and this senior writer with any questions after discharge. She was given discharge instructions by nursing staff. CUBA ZULUAGA NP [id number]/[facility] #: [id number] [place]
== END 2018-02-22 11:30 | disposition home or self-care (01) | DRG 751 ==
LOC: ED 14:09 → BSU 22:40 → ED 02-11 00:48 → BSU 02-11 22:44
PROVIDERS: ADMIT Psychiatry & Neurology Psychiatry; ATTEND Psychiatry & Neurology Psychiatry
DX: F33.1 Major depressive disorder, recurrent, moderate (principal); R45.851 Suicidal ideations; F50.9 Eating disorder, unspecified; J45.909 Unspecified asthma, uncomplicated; E55.9 Vitamin D deficiency, unspecified; Z79.899 Other long term (current) drug therapy; Z81.8 Family history of other mental and behavioral disorders
CPT/HCPCS: 36415; 80053; 80307; 80320; 80329; 81003; 81015; 82306; 84443; 85025; 87086; 90853; 93005; 96102; 99222; 99231; 99232; 99233; 99284; A9270-GY; G0480